=== PATIENT | female | born 1985 | race Caucasian/White ===

== ENCOUNTER 2020-02-15 13:16 | Emergency (ER) | payer MEDICAID ==
[~2020-02-15] VITALS: Ht 185.4 cm; Wt 70.8 kg
[2020-02-15 13:51] VITALS: BP 128/81; Ht 185.4 cm; Wt 70.8 kg
== END 2020-02-15 14:54 | disposition home or self-care (01) ==
LOC: ED 13:16
DX: L02.511 Cutaneous abscess of right hand (principal); Z98.890 Other specified postprocedural states